=== PATIENT | male | born 1970 ===

== ENCOUNTER → 2021-07-05 14:20 | Outpatient (BNVA) | payer MEDICAID, SELFPAY | PROVIDERS: Visit Provider Orthopaedic Surgery | DX: R20.0 Anesthesia of skin (principal); R20.2 Paresthesia of skin; M25.641 Stiffness of right hand, not elsewhere classified | CPT/HCPCS: 97140; 99202 ==

== ENCOUNTER 2023-01-28 12:16 | Day surgery (SDC) | payer MEDICAID, SELFPAY ==
[2023-01-28 12:40] LABS: Glucose, Whole Blood 125 mg/dL (60-115)
--- NOTE | 2023-01-28 12:43 | HO.ANESPROP2 ---
HPI - Anesthesia Eval Consult details Narrative: for colonoscopy [facility] Active Problems Active Problems: All Active Problems (Updated 01/25/23 @ 13:42 by Khushboo Gutierrez, RN) Numbness and tingling in both hands (Acute) Stiffness of right hand joint (Acute) Past Medical History Medical History (Updated 01/25/23 @ 13:42 by Khushboo Gutierrez RN) BPH (benign prostatic hyperplasia) Diabetes High blood pressure Hyperglycemia Family History Family history of problems with anesthesia: No Surgical History History of Problems with Anesthesia: No Social History Social History Patient Tobacco Use Status: Never used Tobacco Meds Allergies Allergy/AdvReac Type Severity Reaction Status Date / Time No Known Allergies Allergy Verified 07/05/21 15:29 [No Known Allergies*] Active Medications: Current Medications Sodium Biphosphate/Sodium Phosphate (Sodium Phosphate,Reynolds-Dibasic 133 Ml Enema) 133 ml CO ONCE PRN PRN Reason: Poor Colonoscopy Prep Results Home Medications Medication Instructions Recorded Confirmed Last Taken Type aspirin 81 mg tablet,delayed 81 mg PO DAILY 07/05/21 Unknown History release atorvastatin 10 mg tablet 10 mg PO BEDTIME 07/05/21 Unknown History cyanocobalamin (vitamin B-12) 1,000 mcg PO DAILY 07/05/21 Unknown History 1,000 mcg capsule dulaglutide 0.75 mg/0.5 mL 0.75 mg subcut QWEEK 07/05/21 Unknown History subcutaneous pen injector ([employer]) hydrochlorothiazide 12.5 mg capsule 12.5 mg PO DAILY 07/05/21 Unknown History lisinopril 2.5 mg tablet 2.5 mg PO DAILY 07/05/21 Unknown History metformin 500 mg tablet 500 mg PO DAILY 07/05/21 Unknown History amlodipine 10 mg tablet 10 mg PO DAILY 01/25/23 01/25/23 Unknown History cetirizine 10 mg tablet 10 mg PO DAILY PRN allergies 01/25/23 01/25/23 Unknown History cholecalciferol (vitamin D3) 50 50 mcg PO QAM 01/25/23 01/25/23 Unknown History mcg (2,000 unit) capsule oxybutynin chloride 10 mg 10 mg PO DAILY 01/25/23 01/25/23 Unknown History tablet,extended release 24 hr tamsulosin 0.4 mg capsule 0.4 mg PO BEDTIME 01/25/23 01/25/23 Unknown History Exam Exam Date and Time: January 28, 2023 1243 Pertinent Lab Results Pertinent Lab Results: Laboratory Tests 01/28/23 12:37 POC Glucose 125 H Airway Mallampati Class: I TM Dist: >3cm Neck ROM: Full Heart: ok Lungs: ok Assessment and Plan Assessment Anesthesia Assessment: Anesthesia Plan Discussed and Chart Reviewed Final Anesthetic Review Family History of Problems with Anesthesia: No History of Problems with Anesthesia: No NPO: Yes ASA Class: II Final Preanesthetic Review: No Changes in Pt Med Stat, Meds/Allgs Chart Reviewed, Consent Obtained/Reviewed and Anes Risks/Benef Reviewed Patient Risk: Intermediate Procedure Risk: Low Anesthetic Plan Anesthetic Plan: MAC: and Agree w/ Assess. and Plan Disposition: Standard PACU
[2023-01-28 12:47] VITALS: BP 162/72; PULSE 75; RESP 16; TEMP 36.7; O2SAT 100; BMI 24.3
[2023-01-28 14:34] VITALS: BP 95/54; PULSE 63; RESP 16; TEMP 36.2; O2SAT 98
--- NOTE | 2023-01-28 14:38 | P.BOP_ITS ---
Brief Operative Note Date of Service: 01/28/23 Pre-op diagnosis: Heme + stool Post-op diagnosis: other (Colon polyps) Procedure: Colonoscopy to the cecum and TI with hot snare polypectomy x 1 at 20cm with placement of submucosal ink and 1 Resolution clip, and biopsy and removal of polyps x 3. Surgeon: Javed Galarza Anesthesia: MAC Was an Alpine Patroller used for this Procedure?: No Estimated blood loss (mL): 2.0 Pathology: other (A. Cecal polyp B. Transverse colon polyp C. Polyp at 25cm D. Polyp at 20cm) Condition: stable Disposition: PACU
[2023-01-28 14:49] VITALS: BP 106/58; PULSE 60; RESP 16; TEMP 37; O2SAT 99
--- NOTE | 2023-01-29 00:26 | OP_ITS ---
DATE OF SERVICE: 01/28/2023 SURGEON: Javed Galarza MD INDICATIONS: The patient presents for evaluation of heme-positive stool. Full consent has been obtained from him for this, including risks of bleeding and perforation. PREOPERATIVE DIAGNOSIS: Heme-positive stool. POSTOPERATIVE DIAGNOSIS: PROCEDURE PERFORMED: ESTIMATED BLOOD LOSS: COMPLICATIONS: ANESTHESIA: Medications used, monitored anesthesia care. ASSISTANTS: SPECIMENS: POSTOPERATIVE DIAGNOSES: Heme-positive stool, colon polyps, diverticulosis, and internal hemorrhoids. PROCEDURES PERFORMED: Colonoscopy to the cecum and terminal ileum with biopsy and removal of polyps, hot snare polypectomy x1, placement of 1 Resolution clip on the polypectomy site at 20 cm, and placement of submucosal ink devlin at the polypectomy site at 20 cm. DESCRIPTION OF PROCEDURE: The patient was placed in the left lateral decubitus position. The digital rectal exam revealed no abnormalities. The [employer] video pediatric colonoscope was entered into the rectum and advanced easily to the cecum. Once in the cecum, I did identify cecal pouch with appendiceal orifice and a normal-appearing ileocecal valve. The terminal ileum was cannulated and appeared normal. The scope was withdrawn back in the colon. The entire cecum and ileocecal valve appeared normal other than a 3 mm polyp, which was biopsied and completely removed with a cold biopsy forceps. The scope was then slowly withdrawn assessing all mucosal surfaces carefully. Preparation was excellent. In the transverse colon was a flat approximately 3 to 4 mm polyp, which was biopsied and completely removed with a cold biopsy forceps. At 25 cm was an approximately 4 mm polyp, which was biopsied and completely removed with a cold biopsy forceps. At 20 cm was an approximately 1.5 cm to 2.0 cm polyp on a stalk. The head of the polyps did have some friability and some small ulcerations. The entire polyp was removed at the base of the stalk with the hot snare and then recovered with the retrieval net and brought out of the patient. The scope was advanced back to the polypectomy site which appeared clean, without any sign of residual polyp nor bleeding. I placed a submucosal ink tommy on each side of the polypectomy site and then placed a single Resolution clip onto the polypectomy site with good deployment and good hemostasis. I did not visualize any other polyps, colitis, nor angiodysplasia. There was mild amount of sigmoid diverticulosis. In the rectum, the scope was retroflexed visualizing small internal hemorrhoids, but no other pathology. The rectal mucosa appeared normal. The scope was straightened out and withdrawn from the patient. He tolerated the procedure well and was returned to the recovery area in stable condition. IMPRESSION: 1. Colon polyps. 2. Diverticulosis. 3. Internal hemorrhoids. PLAN: The results of the pathology will be checked. Depending upon the pathology findings on the larger polyp at 20 cm we will then determine as to when his next colonoscopy will be. If they are all just tubular adenomas, including the larger polyp, I would then recommend a repeat colonoscopy in 3 years. He was advised not to use any aspirin or NSAIDs for at least 1 week. This has been discussed with his with an coil spring assembler. MD AZALIA Page/DANIEL / [id number] MTDD
== END 2023-01-28 15:06 | disposition home or self-care (01) ==
PROVIDERS: Visit Provider Internal Medicine
PROC: 0DJD8ZZ Inspection of Lower Intestinal Tract, Via Natural or Artificial Opening Endoscopic (ICD-10-PCS; CPT 45378; principal; 2023-01-28 13:40)
DX: R19.5 Other fecal abnormalities (principal); D12.0 Benign neoplasm of cecum; D12.3 Benign neoplasm of transverse colon; D12.6 Benign neoplasm of colon, unspecified; K57.30 Diverticulosis of large intestine without perforation or abscess without bleeding; K64.8 Other hemorrhoids; E11.9 Type 2 diabetes mellitus without complications; I10 Essential (primary) hypertension; Z79.84 Long term (current) use of oral hypoglycemic drugs; Z79.899 Other long term (current) drug therapy
CPT/HCPCS: 45385; 45381; 45380; 82947; 88305

== ENCOUNTER 2023-06-28 15:00 | Outpatient (REF) | payer MEDICAID, SELFPAY ==
[2023-06-28 17:43] LABS: Alanine Aminotransferase 33 U/L (0-40); Albumin Level 4.3 g/dL (3.5-5.0); Alkaline Phosphatase 63 U/L (39-117); Anion Gap 16 (12-20); Aspartate Amino Transferase 19 U/L (5-37); Bilirubin Total 0.4 mg/dL (0.0-1.0); Blood Urea Nitrogen 14 mg/dL (9-16); Calcium 9.6 mg/dL (8.4-10.2); Carbon Dioxide 24 mmol/L (22-29); Chloride 105 mmol/L (96-108); Cholesterol 103 mg/dL (<200); Estimated Glomerular Filt Rate > 60; Glucose Random 141 mg/dL (60-115); HDL Cholesterol 30 mg/dL (>40); LDL Cholesterol Calculated 35 mg/dL (<100); Potassium 3.9 mmol/L (3.3-5.1); Sodium 141 mmol/L (135-145); Total Protein 7.3 g/dL (6.5-8.0); Triglycerides 191 mg/dL (<150)
[2023-06-28 18:04] LABS: Prostate Specific Antigen 0.54 ng/mL (<0.05-4.0)
[2023-06-29 03:33] LABS: HBS Num1 > 1000.00 mIU/mL (0-7.99); ~Hepatitis B Surface Antibody REACTIVE (Nonreactive)
== END 2023-06-28 15:01 | disposition home or self-care (01) ==
LOC: HO.HHCL 15:00
PROVIDERS: Visit Provider Registered Nurse
DX: Z00.01 Encounter for general adult medical examination with abnormal findings (principal); E11.9 Type 2 diabetes mellitus without complications
CPT/HCPCS: 36415; 80053; 80061; 84153; 86706

== ENCOUNTER 2023-10-21 14:15 | Emergency (ER) | payer MEDICAID, SELFPAY ==
--- NOTE | 2023-10-21 14:30 | ED_ITS ---
HPI - General Adult General Chief complaint: Wound/Laceration Stated complaint: Cut on lip Time Seen by Provider: 10/21/23 15:02 Source: patient and family Mode of arrival: ambulatory Limitations: no limitations History of Present Illness HPI narrative: Patient is a 53-year-old male with history of DM presenting to the emergency department with complaint of laceration to left lower lip. Patient states that he was walking up a set of stairs with a ladder when he lost his footing, falling forward and hitting his lower lip against the step. He denies loss of consciousness. Denies any loose teeth. Denies any injury to tonuge. Denies headache, vision changes. He has not anticoagulated. Believes last tetanus vaccine was 6 years ago. MD complaint: lip laceration Onset (ago): hour(s) Location: mouth Severity: mild Quality: aching Associated symptoms: denies other symptoms Treatments prior to arrival: cold therapy Related Data Home Medications Medication Instructions Recorded Confirmed aspirin 81 mg tablet,delayed 81 mg PO DAILY 07/05/21 release atorvastatin 10 mg tablet 10 mg PO BEDTIME 07/05/21 cyanocobalamin (vitamin B-12) 1,000 mcg PO DAILY 07/05/21 1,000 mcg capsule dulaglutide 0.75 mg/0.5 mL 0.75 mg subcut QWEEK 07/05/21 [facility] hydrochlorothiazide 12.5 mg capsule 12.5 mg PO DAILY 07/05/21 lisinopril 2.5 mg tablet 2.5 mg PO DAILY 07/05/21 metformin 500 mg tablet 500 mg PO DAILY 07/05/21 amlodipine 10 mg tablet 10 mg PO DAILY 01/25/23 01/25/23 cetirizine 10 mg tablet 10 mg PO DAILY PRN allergies 01/25/23 01/25/23 cholecalciferol (vitamin D3) 50 50 mcg PO QAM 01/25/23 01/25/23 mcg (2,000 unit) capsule oxybutynin chloride 10 mg 10 mg PO DAILY 01/25/23 01/25/23 tablet,extended release 24 hr tamsulosin 0.4 mg capsule 0.4 mg PO BEDTIME 01/25/23 01/25/23 Previous Rx's Medication Instructions Recorded amoxicillin 875 mg-potassium 1 tab PO BID #10 tabs 10/21/23 clavulanate 125 mg tablet ibuprofen 600 mg tablet 600 mg PO TID PRN pain #20 tabs 10/21/23 Allergies Allergy/AdvReac Type Severity Reaction Status Date / Time No Known Allergies Allergy Verified 10/21/23 14:31 [No Known Allergies*] Review of Systems 2 Review of Systems: As per HPI. Yes all other systems are reviewed and are negative Constitutional: Constitutional: Reports as per HPI [facility] Past Medical History Medical History (Updated 10/21/23 @ 15:52 by Trini Osei NP) BPH (benign prostatic hyperplasia) High blood pressure Hyperglycemia Diabetes Social History Social History Patient Tobacco Use Status: Never used Tobacco Advance Directives: No Advance Directives Information Provided: Yes Physical Exam ED Vital Signs: Vital Signs - 24 hr 10/21/23 14:31 Temperature 98 F Pulse Rate 73 Respiratory Rate 17 Blood Pressure 178/87 H Pulse Oximetry 98 Oxygen Delivery Method Room Air BMI result Body Mass Index 25.4 Vital signs have been reviewed and appear to be correct. Blood pressure eleavted. Heart rate normal. Respiratory rate normal. Temperature normal. Oxygen saturation normal. Const General: cooperative, healthy appearing and no acute distress Orientation/consciousness: oriented to person, oriented to place, oriented to time and patient oriented x3 Limitations: no limitations HENMT Head: Yes normocephalic and Yes atraumatic Ears: external ears normal General nose exam: Normal external nose present Face and sinus: Yes face symmetric Mouth: oropharynx normal, moist mucous membranes and lip abnormal left lower laceration Mouth/tongue images: 2 1. Laceration with irregular borders, does not cross vermilion border, no active bleeding, moderate swelling Throat: Yes uvula midline Eyes Pupils: Equal, round and reactive pupils present Neck Neck: Yes normal visual inspection and Yes supple Resp Effort & Inspection: normal respiratory effort and able to speak in complete sentences Auscultation: clear to auscultation bilaterally Cardio Rate: regular rate Rhythm: regular rhythm Heart sounds: S1 normal heart sound present and S2 normal heart sound present Skin General skin exam: elasticity normal and turgor normal Neuro General: oriented to person, oriented to place, oriented to time, patient oriented x3, moves all extremities, no focal motor deficits and CN's II-XI intact bilaterally Cranial nerves: Yes Equal, round and reactive pupils present Cognition (Neuro): normal cognition Extrem General: Yes full ROM, Yes no pedal edema and Yes no calf tenderness Psych Mental Status: mental status grossly normal Affect: normal affect Thought process: Normal thought process present Course Course Course Narrative: RME performed by Mitzy Richter PA-C. Patient is a 53 year old assigned male at presenting to the emergency department with a lip laceration. Detailed physical exam and review of systems are deferred to the bull wheel worker. Patient placed back in the waiting room pending room availability. Medications Administered Discontinued Medications Generic Name Dose Route Start Last Admin Trade Name Aurea PRN Reason Stop Dose Admin Diphtheria/Tetanus/Acell Pertussis 0.5 ml 10/21/23 15:03 10/21/23 15:32 Diphth,Pertus(Acell),Tet Adult 0.5 Ml Syringe IM 10/21/23 15:04 0.5 ml .ONCE ONE Administration Lidocaine HCl 5 ml 10/21/23 15:03 10/21/23 15:34 Lidocaine Hcl 1 % Mpf 5 Ml Vial INFILTRATI 10/21/23 15:04 5 ml ONCE ONE Administration Procedures Laceration Laceration 1: Site: lip Side (If applicable): left Size (cm): 1 Description: irregular Depth: simple, single layer Local Anesthetic: lidocaine 1% and other anesthetic (topical bupivacaine) Amount of anesthesia used (mL): 1 Pre-repair: wound explored, irrigated extensively and deep structures intact Skin layer closed with: other (chromic gut) Size (cm): 6-0 Number of sutures: 3 Technique: simple, interrupted Medical Decision Making Medical Decision Making MDM Narrative: Patient is a 53-year-old male with history of DM presenting to the emergency department with complaint of laceration to left lower lip. On exam patient is awake, A+Ox3, BP elevated, likely secondary to pain, VS otherwise WNL, afebrile, normal neurological exam without focal deficits, physical exam findings as above. Given reported symptoms and physical exam findings, initial differential includes lip laceration, dental injury. Laceration repaired as per procedure note. Tdap updated. Wound care discussed with patient and return precautions discussed at bedside. Will prescribe Augmentin as patient is diabetic to prevent infection. Will prescribe 600 mg ibuprofen at patient request. Instructed patient to follow-up with primary care provider. Patient verbalized understanding of and agreement with plan Differential Diagnosis Differential Diagnoses: The differential diagnosis associated with the presentation includes As per MDM. External Record Review External record reviewed: Inpatient record, Office record and Outpatient record Prescription Management I considered prescription management with: Pain Medication and Antibiotic Discharge Plan Discharge Clinical Impression: Laceration of lip without complication Qualifiers: Encounter type: initial encounter Qualified Code(s): S01.511A - Laceration without foreign body of lip, initial encounter Patient Disposition: Home, Self-Care Instructions: Facial Laceration (ED) Additional Instructions: You have been evaluated in the emergency department today for a laceration to your lower lip. Your laceration was repaired in the emergency department with sutures which do not need to be removed, they will dissolve on their own. You are being prescribed antibiotics to prevent infection. Please keep the area surrounding the laceration clean and dry and use caution when eating, drinking, and brushing your teeth. Keep the area out of direct sunlight for the next 6 months to help prevent scarring. Assess the wound daily for signs of infection. If you develop fever, redness, swelling at the site of your laceration, or thick yellow drainage please come back to the ER for a wound check. Prescriptions: New amoxicillin-pot clavulanate 875-125 mg tablet 1 tab PO BID Qty: 10 0RF ibuprofen 600 mg tablet 600 mg PO TID PRN (Reason: pain) Qty: 20 0RF No Action cetirizine 10 mg Tablet 10 mg PO DAILY PRN (Reason: allergies) oxybutynin chloride 10 mg Tablet Extended Release 24hr 10 mg PO DAILY tamsulosin 0.4 mg Capsule 0.4 mg PO BEDTIME amlodipine 10 mg Tablet 10 mg PO DAILY cholecalciferol (vitamin D3) 50 mcg (2,000 unit) capsule 50 mcg PO [facility]
[2023-10-21 14:31] VITALS: BP 178/87; PULSE 73; RESP 17; TEMP 36.6; O2SAT 98; BMI 25.4
--- NOTE | 2023-10-21 15:16 | ED.WOUNDLAC ---
HPI - Wound/Laceration General Chief Complaint: Wound/Laceration Stated Complaint: Cut on lip Time Seen by Provider: 10/21/23 15:02 Source: patient and family Mode of arrival: ambulatory Limitations: no limitations History of Present Illness HPI narrative: Patient is a 53-year-old male presenting to the emergency department with complaint of laceration to left lower lip. Patient states that he was walking up a set of stairs with a ladder when he lost his footing, falling forward and hitting his lower lip against the step. He denies loss of consciousness. Denies any loose teeth. Denies any injury to tonuge. Denies headache, vision changes. He has not anticoagulated. Believes last tetanus vaccine was 6 years ago. Onset (ago): minute(s) Location: face Place: home Patient tetanus UTD: No Context: accidental Associated symptoms: pain Treatments prior to arrival: cold therapy Related Data Home Medications Medication Instructions Recorded Confirmed aspirin 81 mg tablet,delayed 81 mg PO DAILY 07/05/21 release atorvastatin 10 mg tablet 10 mg PO BEDTIME 07/05/21 cyanocobalamin (vitamin B-12) 1,000 mcg PO DAILY 07/05/21 1,000 mcg capsule dulaglutide 0.75 mg/0.5 mL 0.75 mg subcut QWEEK 07/05/21 [facility] hydrochlorothiazide 12.5 mg capsule 12.5 mg PO DAILY 07/05/21 lisinopril 2.5 mg tablet 2.5 mg PO DAILY 07/05/21 metformin 500 mg tablet 500 mg PO DAILY 07/05/21 amlodipine 10 mg tablet 10 mg PO DAILY 01/25/23 01/25/23 cetirizine 10 mg tablet 10 mg PO DAILY PRN allergies 01/25/23 01/25/23 cholecalciferol (vitamin D3) 50 50 mcg PO QAM 01/25/23 01/25/23 mcg (2,000 unit) capsule oxybutynin chloride 10 mg 10 mg PO DAILY 01/25/23 01/25/23 tablet,extended release 24 hr tamsulosin 0.4 mg capsule 0.4 mg PO BEDTIME 01/25/23 01/25/23 Allergies Allergy/AdvReac Type Severity Reaction Status Date / Time No Known Allergies Allergy Verified 10/21/23 14:31 [No Known Allergies*] Review of Systems Review of Systems: As per HPI. Yes all other systems are reviewed and are negative Constitutional: Constitutional: Reports as per HPI [facility] Past Medical History Medical History (Updated 01/25/23 @ 13:42 by Khushboo Gutierrez RN) BPH (benign prostatic hyperplasia) High blood pressure Hyperglycemia Diabetes Social History Social History Patient Tobacco Use Status: Never used Tobacco Advance Directives: No Advance Directives Information Provided: Yes Physical Exam Vital Signs: Vital Signs: Last Vital Signs Temp 98 F 10/21/23 14:31 Pulse 73 10/21/23 14:31 Resp 17 10/21/23 14:31 BP 178/87 H 10/21/23 14:31 Pulse Ox 98 10/21/23 14:31 O2 Del Method Room Air 10/21/23 14:31 BMI result Body Mass Index 25.4 Vital signs have been reviewed and appear to be correct. Blood pressure elevated. Heart rate normal. Respiratory rate normal. Temperature normal. Oxygen saturation normal. Const: General: cooperative, healthy appearing and no acute distress Orientation/consciousness: oriented to person, oriented to place, oriented to time and patient oriented x3 Limitations: no limitations HEENT: Head: Yes normocephalic and Yes atraumatic Ears: external ears normal General nose exam: Normal external nose present Face and sinus: Yes face symmetric Mouth: oropharynx normal, moist mucous membranes and lip abnormal left lower swelling and laceration Mouth/tongue images: 1. laceration with irregular borders, swelling, no active bleeding, does not cross codey border Throat: Yes uvula midline Eyes: Pupils: Equal, round and reactive pupils present Neck: Neck: Yes normal visual inspection and Yes supple Resp: Effort & Inspection: normal respiratory effort and able to speak in complete sentences Auscultation: clear to auscultation bilaterally Cardio: Rate: regular rate Rhythm: regular rhythm Heart sounds: S1 normal heart sound present and S2 normal heart sound present Skin: General skin exam: elasticity normal and turgor normal Neuro: General: oriented to person, oriented to place, oriented to time, patient oriented x3, moves all extremities, no focal motor deficits and CN's II-XI intact bilaterally Cranial nerves: Yes Equal, round and reactive pupils present Cognition (Neuro): normal cognition Extrem: General: Yes full ROM, Yes no pedal edema and Yes no calf tenderness Psych: Mental Status: mental status grossly normal Affect: normal affect Thought process: Normal thought process present Medical Decision Making Medical Decision Making [facility] Narrative: Patient is a 53-year-old male presenting to the emergency department with complaint of laceration to left lower lip. On exam patient is awake, A+Ox3, BP elevated, VS otherwise WNL, afebrile, normal neurological exam without focal deficits, physical exam findings as above. Given reported symptoms and physical exam findings, initial differential includes lower lip laceration, dental injury. Laceration repaired as per procedure note. Tdap updated. Patient tolerated well. Wound care instructions discussed with patient at bedside. Return precautions discussed. Patient verbalized understanding of and agreement with plan. Differential Diagnosis Differential Diagnoses: The differential diagnosis associated with the presentation includes as per [facility] External Record Review External record reviewed: Inpatient record, Office record and Outpatient record Discharge Plan Discharge Prescriptions: No Action cetirizine 10 mg Tablet 10 mg PO DAILY PRN (Reason: allergies) oxybutynin chloride 10 mg Tablet Extended Release 24hr 10 mg PO DAILY tamsulosin 0.4 mg Capsule 0.4 mg PO BEDTIME amlodipine 10 mg Tablet 10 mg PO DAILY cholecalciferol (vitamin D3) 50 mcg (2,000 unit) capsule 50 mcg PO QAM
[2023-10-21] MEDS: Diphth,Pertus(ACell),Tet Adult 0.5 ML SYRINGE IM (15:32)
[2023-10-21] MEDS: Lidocaine HCl 1 % MPF 5 ML VIAL INFILTRATI (15:34)
== END 2023-10-21 15:59 | disposition home or self-care (01) ==
PROVIDERS: Emergency Provider Emergency Medicine
DX: S01.511A Laceration without foreign body of lip, initial encounter (principal); W17.89XA Other fall from one level to another, initial encounter; Y93.89 Activity, other specified; Y92.9 Unspecified place or not applicable; Y99.9 Unspecified external cause status; Z23 Encounter for immunization
CPT/HCPCS: 12011; 90471; 90715; 99282; 99284

== ENCOUNTER 2023-11-15 10:30 | Outpatient (REF) | payer MEDICAID, SELFPAY ==
[2023-11-15 11:21] LABS: Estimated Average Glucose 140 mg/dL; Hemoglobin A1c % 6.5 % (<6.0)
[2023-11-15 11:55] LABS: Alanine Aminotransferase 27 U/L (0-40); Albumin Level 4.4 g/dL (3.5-5.0); Alkaline Phosphatase 69 U/L (39-117); Anion Gap 10 (12-20); Aspartate Amino Transferase 17 U/L (5-37); Bilirubin Total 0.5 mg/dL (0.0-1.0); Blood Urea Nitrogen 15 mg/dL (9-16); Calcium 9.4 mg/dL (8.4-10.2); Carbon Dioxide 29 mmol/L (22-29); Chloride 107 mmol/L (96-108); Cholesterol 119 mg/dL (<200); Estimated Glomerular Filt Rate > 60; Glucose Random 140 mg/dL (60-115); HDL Cholesterol 31 mg/dL (>40); LDL Cholesterol Calculated 70 mg/dL (<100); Potassium 4.7 mmol/L (3.3-5.1); Sodium 141 mmol/L (135-145); Total Protein 7.5 g/dL (6.5-8.0); Triglycerides 93 mg/dL (<150)
[2023-11-15 12:29] LABS: Creatinine Urine 143.38 mg/dL; Microalbum/Creatinine Ratio Ur 7.6 ug/mg cr (<30)
[2023-11-24 10:03] LABS: Anti Nuclear Antibody Pattern Nuclear, Homogeneous; Anti Nuclear Antibody Screen POSITIVE (NEGATIVE)
== END 2023-11-15 10:31 | disposition home or self-care (01) ==
LOC: HO.HHCL 10:30
PROVIDERS: Nurse Practitioner; Visit Provider Student in an Organized Health Care Education/Training Program
DX: I10 Essential (primary) hypertension (principal); E11.9 Type 2 diabetes mellitus without complications; R22.0 Localized swelling, mass and lump, head
CPT/HCPCS: 36415; 80053; 80061; 82043; 82570; 83036; 86038; 86039

== ENCOUNTER 2024-08-04 14:53 | Outpatient (AMB) | payer MEDICAID, SELFPAY ==
--- NOTE | 2024-08-04 15:04 | MHC.OFFVIS ---
Vital Signs 08/04/24 15:13 Height 5 ft 7 in Weight 168 lb 13.985 oz BMI 26.4 BP 140/62 H Blood Pressure Location Lt brachial Position Sitting Pulse 81 Pulse Source Pulse Oximeter Pulse Oximetry (%) 96 Oxygen Delivery Method Room Air Intake Visit Reasons: +SANJANA/cm Elevator Starter Required: Yes Elevator Starter Language: Seamer Operator Services: Elevator Starter Present Elevator Starter Name: Edenilson [email or web address] Information Interpreted: non-clinical & clinical Allergies No Known Allergies [No Known Allergies*] Allergy (Verified 08/04/24 15:08) Medication List - Last Reconciled 08/04/24 by Leopoldo Arnold MD amlodipine 10 mg PO DAILY amoxicillin-pot clavulanate 875-125 mg 1 tab PO BID aspirin 81 mg PO DAILY atorvastatin 10 mg PO BEDTIME cetirizine 10 mg PO DAILY PRN cholecalciferol (vitamin D3) 50 mcg PO QAM cyanocobalamin (vitamin B-12) 1,000 mcg PO DAILY dulaglutide (Trulicity) 0.75 mg subcut QWEEK hydrochlorothiazide 12.5 mg PO DAILY ibuprofen 600 mg PO TID PRN lisinopril 2.5 mg PO DAILY metformin 500 mg PO DAILY oxybutynin chloride ER 10 mg PO DAILY tamsulosin 0.4 mg PO BEDTIME HPI Comments Details: This is a 54-year-old male who presents for evaluation of positive SANJANA in the context of lip swelling. For new this year patient presented to the hospital after he fell and had a lip injury, he had 3 stitches and was prescribed Augmentin. He then developed lip swelling, he was evaluated by his PCP who ordered an SANJANA test which was positive. Patient states that he had similar symptoms 2-3 years ago with lip swelling. Denies any other symptoms today such as fevers, skin rashes, unintentional weight loss. He is unaware of any family history of an autoimmune rheumatic disease. [facility] Medical History Lip swelling Positive SANJANA (antinuclear antibody) Contact dermatitis Hypertrophy of bone BPH (benign prostatic hyperplasia) High blood pressure Hyperglycemia Diabetes Family History Father Arthritis Mother Diabetes Arthritis Sister Diabetes Social History Household Members: Spouse Housing: House Alcohol intake: former Patient Tobacco Use Status: Never used Tobacco Review of Systems Const Denies fever(s) and Denies weight loss ENT Reports no additional complaints Musc Reports arthralgias Physical Exam Vital Signs: Last Vital Signs Pulse 81 08/04/24 15:13 BP 140/62 H 08/04/24 15:13 Pulse Ox 96 08/04/24 15:13 Oxygen Delivery Method Room Air 08/04/24 15:13 BMI result Body Mass Index 26.4 Const General: cooperative, healthy appearing and comfortable Nutritional Appearance: overweight Orientation/consciousness: patient oriented x3 Limitations: no limitations HEENT Head: Yes normocephalic and Yes atraumatic Mouth: moist mucous membranes Resp Effort & Inspection: normal respiratory effort and able to speak in complete sentences Auscultation: clear to auscultation bilaterally Skin General skin exam: no rashes or lesions noted Neuro General: patient oriented x3 Extrem Other: Osteoarthritic changes of both hands with no active synovitis Left hand Dupuytren's contracture Assessment & Plan Assessment & Plan (1) Positive SANJANA (antinuclear antibody): Code(s): R76.8 - Other specified abnormal immunological findings in serum Category: Medical Plan: This is a 54-year-old male who presents for evaluation of positive SANJANA. This was ordered in the context of lip swelling. Angioedema was suspected. Upon evaluation I do not see any signs suggestive of an autoimmune rheumatic disease. About 20% of the population may have a positive SANJANA with no underlying autoimmune rheumatic disease. I think patient should be evaluated by Allergy/immunology. Consider discontinuing lisinopril Plan I spent 30 minutes reviewing patient's chart, evaluating patient, counseling patient and documenting in the chart Coding Level of Care Code New Pt Level 3 (80942) Diagnoses Positive SANJANA (antinuclear antibody) R76.8
[2024-08-04 15:13] VITALS: BP 140/62; PULSE 81; O2SAT 96; BMI 26.4
== END 2024-08-04 15:42 | disposition home or self-care (01) ==
LOC: HO.RHE 14:54
PROVIDERS: PCP Student in an Organized Health Care Education/Training Program; Visit Provider Student in an Organized Health Care Education/Training Program
DX: R76.8 Other specified abnormal immunological findings in serum (principal)
CPT/HCPCS: 99203

== ENCOUNTER → 2024-08-04 14:53 | Outpatient (BNVA) | payer MEDICAID, SELFPAY | PROVIDERS: PCP Student in an Organized Health Care Education/Training Program; Visit Provider Student in an Organized Health Care Education/Training Program | DX: R76.8 Other specified abnormal immunological findings in serum (principal); Z91.81 History of falling | CPT/HCPCS: 99202 ==

== ENCOUNTER 2024-09-04 10:04 | Outpatient (REF) | payer MEDICAID, SELFPAY ==
[2024-09-04 12:01] LABS: Anion Gap 11 (12-20); Blood Urea Nitrogen 18 mg/dL (9-16); Calcium 10.2 mg/dL (8.4-10.2); Carbon Dioxide 25 mmol/L (22-29); Chloride 106 mmol/L (96-108); Estimated Glomerular Filt Rate > 60; Glucose Random 197 mg/dL (60-115); Potassium 4.2 mmol/L (3.3-5.1); Sodium 138 mmol/L (135-145)
== END 2024-09-04 10:05 | disposition home or self-care (01) ==
LOC: HO.HHCL 10:04
PROVIDERS: Visit Provider Nurse Practitioner
DX: E11.9 Type 2 diabetes mellitus without complications (principal); I10 Essential (primary) hypertension
CPT/HCPCS: 36415; 80048

== ENCOUNTER 2024-11-13 08:19 | Outpatient (REF) | payer MEDICAID, SELFPAY ==
--- OUTSIDE RECORDS SUMMARY | 2024-11-13 08:27 | XMS_ITS | Encounter Summary ---
Author Organization [employer] Address [address] [facility] 7t [place] [address] Care Team Providers Care Electrician Station Assistant Name Role Phone Maximelois Kira DARRION Primary Care Provider [phone] Reason for Visit * Reason Comments Med Refill Encounter Details Date Type Department Care Team ([facility] st Contact Info) Description 10/07/2023 Refill [facility] [address] [place], [place] [phone] Julius Buckley MD [address] [place] [address] Type 2 diabetes mellitus without complication, without long-term current use of insulin ([facility]) Social History Tobacco Use Types Packs/Day Years Used Date Smoking Tobacco: Never Passive Smoke Exposure: Never Smokeless Tobacco: Never Alcohol Use Standard Drinks/Week Comments Not Currently 0 (1 standard drink = 0.6 oz pur e alcohol) Housing Stability Answer Date Recorded What is your housing situation today? I have liya sarah 07/16/[address] you li ve. Do you have problems with any of the following? None of the above 07/16/2023 Food Insecurity Answer Date Recorded Within the past 12 months, y ou worried that your food would run out before you got money to buy more: Never True 07/16/2023 Within the past 12 months,th e food you bought just didn't last and you didn't have enough money to get more: Never True Transportation Answer Date Recorded In the past 12 months, has l ack of transportation kept you from medical appts, meetings, work or from getting things needed for daily living? No 07/16/2023 Utilities Answer Date Recorded In the past 12 months, has t he electric, gas, oil or water company threatened to shut off services in your home? No 07/16/2023 Depression Answer Date Recorded Patient Health Questionnaire-2 Score 0 09/25/2022 Sex and Gender Information Value Date Recorded Sex Assigned at Male 07/30/2022 10:18 AM EDT Legal Sex Male 10:18 AM EDT Gender Identity Male 07/30/2022 10:18 AM EDT Sexual Orientation Choose not to disclose 2021 10:18 AM EDT documented as of this encounter Miscellaneous Notes * Telephone Encounter - Kira Larry NP - 10/08/2023 11:19 AM EST Approving, but needs appt for additional refills. documented in this encounter Plan of Treatment Upcoming Encounters Date Type Department Care Team (Late st Contact Info) Description 12/02/2024 3:15 PM EST Office Visit [facility] [address] [place] [address] Kira Larry NP [address] [place] [address] documented as of this encounter Visit Diagnoses Diagnosis Type 2 diabetes mellitus without complication, without long-term current use of insulin ([facility]) documented in this encounter Care Teams Electrician Station Assistant Relationship Specialty Start Date End Date Kira Larry NP [address] [place] [address] PCP - General Family Medicine 07/04/23 documented as of this encounter
--- OUTSIDE RECORDS SUMMARY | 2024-11-13 08:27 | XMS_ITS | Encounter Summary ---
Author Organization [employer] [facility] Address [address] [facility] 7t [place] [address] Care Team Providers Care Coal Miner Name Role Phone Mely Olivas Primary Care Provider [phone] Kira Larry NP Primary Care Provider [phone] Encounter Details Date Type Department Care Team (Latest Contact Info) Description 03/31/2019 Abstract [facility] CONVERSIONS Dental, Provider, DDS Social History Tobacco Use Types Packs/Day Years Used Date Smoking Tobacco: Never Assessed Sex and Gender Information Value Date Recorded Sex Assigned at Male 07/30/2022 10:18 AM EDT Legal Sex Male 10:18 AM EDT Gender Identity Male 07/30/2022 10:18 AM EDT Sexual Orientation Choose not to disclose 2021 10:18 AM EDT documented as of this encounter Plan of Treatment Upcoming Encounters Date Type Department Care Team ( st Contact Info) Description 12/02/2024 3:15 PM EST Office Visit [facility] MEDICINE [address] [place] [address] Kira Larry NP [address] [place] [address] documented as of this encounter Visit Diagnoses Not on filedocumented in this encounter Care Teams Coal Miner Relationship Specialty Start Date End Date Mely Olivas FNP PCP - General Family Medicine 05/27/22 07/03/23 Kira Larry NP [address] [place] [address] PCP - General Family Medicine 07/04/23 documented as of this encounter
--- OUTSIDE RECORDS SUMMARY | 2024-11-13 08:27 | XMS_ITS | Encounter Summary ---
Author Organization [employer] Address [address] [facility] 7t [place] [address] Care Team Providers Care Bicycle Inspector Name Role Phone MaximeKira abreu DARRION Primary Care Provider [phone] Reason for Visit * Reason Comments Med Refill Encounter Details Date Type Department Care Team ([facility] st Contact Info) Description 10/07/2023 Refill [facility] [address] [place], [place] [phone] Name, MD [place] [address] [place] [address] Type 2 diabetes mellitus without complication, without long-term current use of insulin ([facility]) Social History Tobacco Use Types Packs/Day Years [...] Description 12/02/2024 3:15 PM EST Office Visit [facility] [address] [place] [address] Kira Larry NP [address] [place] [address] documented as of this encounter Visit Diagnoses Diagnosis Type 2 diabetes mellitus without complication, without long-term current use of insulin ([facility]) documented in this encounter Care Teams Bicycle Inspector Relationship Specialty Start Date End Date Kira Larry NP [address] [place] [address] PCP - General Family Medicine 07/04/23 documented as of this encounter
--- OUTSIDE RECORDS SUMMARY | 2024-11-13 08:27 | XMS_ITS | Encounter Summary ---
Author Organization [employer] Address [address] [facility] 7t [place] [address] Care Team Providers Care Epic Kaleidoscope Analyst Name Role Phone MaximeKira abreu DARRION Primary Care Provider [phone] Reason for Visit * Reason Comments Med Refill Encounter Details Date Type Department Care Team ([facility] st Contact Info) Description 08/06/2023 Refill [facility] [address] [place] [address] Mely Olivas FNP [address] [place] [address] Dept [place] [address] Type 2 diabetes mellitus without complication, without long-term current use of insulin ([facility]) Social History Tobacco Use Types [...] Description 12/02/2024 3:15 PM EST Office Visit [facility] MEDICINE [address] [place] [address] Kira Larry NP [address] [place] [address] documented as of this encounter Visit Diagnoses Diagnosis Type 2 diabetes mellitus without complication, without long-term current use of insulin ([facility]) documented in this encounter Care Teams Epic Kaleidoscope Analyst Relationship Specialty Start Date End Date Kira Larry NP [address] [place] [address] PCP - General Family Medicine 07/04/23 documented as of this encounter
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
--- OUTSIDE RECORDS SUMMARY | 2024-11-13 08:28 | XMS_ITS | Encounter Summary ---
Author Organization [employer] Address [address] [facility] 7t [place] [address] Care Team Providers Care Ceramic Restorer Name Role Phone Kira Larry NP Primary Care Provider [phone] Reason for Visit * Reason Comments Med Refill Encounter Details Date Type Department Care Team ([facility] st Contact Info) Description 10/27/2024 Refill [facility] [address] [place], [place] [phone] Kira Larry NP [address] [place], [place] [phone] Type 2 diabetes mellitus without complication, without long-term current use of insulin ([facility]) Social History Tobacco Use Types Packs/Day Years [...] Description 12/02/2024 3:15 PM EST Office Visit [facility] MEDICINE [address] [place] [address] Kira Larry NP [address] [place] [address] documented as of this encounter Visit Diagnoses Diagnosis Type 2 diabetes mellitus without complication, without long-term current use of insulin ([facility]) documented in this encounter Additional Health Concerns Assessment Noted Time PHQ-9 Depression Total Score: 4 03/11/20 24 4:00 PM EDT documented as of this encounter Care Teams Ceramic Restorer Relationship Specialty Start Date End Date Kira Larry NP [address] [place] [address] PCP - General Family Medicine 07/04/23 documented as of this encounter
--- OUTSIDE RECORDS SUMMARY | 2024-11-13 08:28 | XMS_ITS | Encounter Summary ---
Author Organization [employer] Address [address] [facility] 7t [place] [address] Care Team Providers Care Regulatory Coordinator Name Role Phone Maximelois Kira DARRION Primary Care Provider [phone] Reason for Visit * Reason Onset Date Comments Lab Orders 10/26/2024 Encounter Details Date Type Department Care Team ([facility] st Contact Info) Description 10/26/2024 Telephone [facility] MED[facility] [address] [place] [address] Baldo Love MA Lab Orders Social History Tobacco Use Types Packs/Day Years [...] encounter Miscellaneous Notes * Telephone Encounter - Baldo Love MA - 10/26/2024 3:38 PM EST T/C was made to notify patient that needs to do blood work before his next appointment with melinda Malone agree to come by Oct for labs. * Telephone Encounter - Baldo Love MA - 10/26/2024 3:38 PM EST ----- Message from Kira Larry sent at 10/11/2024 7:56 PM EST ----- Hi Timothy! When its closer to the patient's appointment date, please call and advise him to do fasting labs. They have been ordered documented in this encounter Plan of Treatment Upcoming Encounters Date Type Department Care Team (Late st Contact Info) Description 12/02/2024 3:15 PM EST Office Visit [facility] [address] [place] [address] Kria Larry NP [address] [place] [address] documented as of this encounter Visit Diagnoses Not on filedocumented in this encounter Additional Health Concerns Assessment Noted Time PHQ-9 Depression Total Score: 4 03/11/20 24 4:00 PM EDT documented as of this encounter Care Teams Regulatory Coordinator Relationship Specialty Start Date End Date Kira Larry NP [address] [place] [address] PCP - General Family Medicine 07/04/23 documented as of this encounter
--- OUTSIDE RECORDS SUMMARY | 2024-11-13 08:28 | XMS_ITS | Patient Health Record ---
Author Organization [facility] Address [address] [place] [address] Care Team Providers Care Supervisor Cemetery Workers Name Role Phone Mely Olivas N.P. Primary Care Provider Un available Javed Galarza Unavailable [phone] ALLERGIES No Known Allergies REASON FOR REFERRAL No Information MEDICATIONS Medication SIG (Take, Route, Frequency, Duration) Notes Start Date End Date Status Fish Oil 1000 MG TAKE 1 CAPSULE BY MO [facility] TWICE DAILY IN THE MORNING AND IN THE EVENING Diagnosis Unavailable Oral for 90 Active Tamsulosin HCl 0.4 MG TAKE 1 CAPSULE BY MOUTH EVERY EVENING (1/2 HOUR AFTER MEALS) Oral for 90 Active Dulcolax (colon prep) 5 MG take at 3:00 p.m and 7:00p.m. Orally two tablets twice a day for one day for 1 day 12/22/2022 Active oxyBUTYnin Chloride ER 10 MG TAKE 1 TABL ET BY MOUTH AT BEDTIME Diagnosis Unavailable Oral for 90 Active amLODIPine Besylate 10 MG TAKE 1 TABLET BY MOUTH EVERY MORNING Oral for 90 Active Atorvastatin Calcium 40 MG TAKE 1 TABLET BY MOUTH EVERY MORNING Diagnosis Unavailable Oral for 90 Active FreeStyle Lite Test - TEST BLOOD SUGAR T WICE DAILY In Vitro for 25 Active Vitamin D3 50 MCG (1999 UT) TAKE 1 CAPSU LE BY MOUTH EVERY MORNING Oral for 90 Active Trulicity 0.75 MG/0.5ML INJECT ONE PEN (=0.75MG) SUBCUTANEOUSLY ONCE A WEEK DIRECTED Subcutaneous for 28 Active Aspirin Low Dose 81 MG TAKE 1 TABLET BY MOUTH EVERY MORNING Oral for 90 Active MiraLax (colon prep) 17 GM/SCOOP 1 238 Gm bottle mixed with Gatorade or Crystal Light Orally begin at 5:00 p.m. the day before the procedure for 1 day 12/22/2022 Active hydroCHLOROthiazide 25 MG TAKE 1 TABLET BY MOUTH EVERY MORNING Oral for 90 Active D3 Super Strength 50 MCG (1999) TAKE 1 CAPSULE BY MOUTH EVERY MORNING Oral for 90 Active metFORMIN HCl 1000 MG TAKE 1 TABLET BY M OUTH TWICE DAILY IN THE MORNING AND IN THE EVENING WITH MEALS Oral for 90 Active Cetirizine HCl 10 MG TAKE 1 TABLET BY MO UTH ONCE DAILY NEEDED Oral for 90 Active Vitamin B-12 1000 MCG TAKE 1 TABLET BY M OUTH EVERY MORNING Oral for 90 Active TRUEplus Lancets 33G - TEST BLOOD SUGAR TWICE DAILY for 50 Active Lisinopril 40 MG TAKE 1 TABLET BY RENETTA TH EVERY MORNING DIRECTED Oral for 90 Active IMMUNIZATIONS Vaccine Route Administration Date Status Comme nts Influenza Unknown 07/17/2022 Administered SOCIAL HISTORY Tobacco Use: Social History Observation Description Date Details (start date - stop date) Never Smoker NA - NA Sex Assigned At : Social History Observation Description Sex Assigned At Unknown Tobacco Use/Smoking Question Answer Notes Patient is a nonsmoker Alcohol Screen Question Answer Notes Did you have a drink containing alcohol in the p ast year? No Points 0 Interpretation Negative PROBLEMS Problem Type ICD Code Onset Dates Problem Status W/U Status Risk SNOMED Code Notes Problem Heme + stool (R19.5) Active confirmed 55863648 Problem Diverticulosis of large intestine without perforation or abscess without bleeding (K57.30) Active confirmed Diverticul ar disease of colon (937969556) PLAN OF TREATMENT Future Test Test Name Order Date COLONOSCOPY 12/21/2022 Insurance Providers Payer Name Payer Address Payer Phone Subscriber Number Group Number Insured Name Patient Relationship to Insured Coverage Start Date Coverage End Date MEDICAID OF Probity [address] [place] [phone] [id number] LAWSON RANDOLPH Self - patient is the insured MEDICAL (GENERAL) HISTORY Medical History History ICD Code NIDDM HTN Denies VT,CVA,Lung disease,renal disease BPH Hyperlipidemia Surgical History Surgery Date(Month/Year)
--- OUTSIDE RECORDS SUMMARY | 2024-11-13 08:28 | XMS_ITS | Encounter Summary ---
Author Organization [employer] Address [address] [facility] 7t [place] [address] Care Team Providers Care Technical Support Manager Name Role Phone Mely Olivas MEGHA Primary Care Provider [phone] Kira Larry NP Primary Care Provider [phone] Encounter Details Date Type Department Care Team (Late st Contact Info) Description 06/04/2023 Orders Only [facility] [address] [place] [address] Millie Sanz LPN Social History Tobacco Use Types Packs/Day Years Used Date Smoking Tobacco: Never Passive Smoke Exposure: Never Smokeless Tobacco: Never Alcohol Use Standard Drinks/Week Comments Never 0 (1 standard drink = 0.6 oz pur e alcohol) Depression Answer Date Recorded Patient Health Questionnaire-2 [...] Description 12/02/2024 3:15 PM EST Office Visit [facility] MEDICINE [address] [place], [place] [phone] Kira Larry NP [address] [place], [place] [phone] documented as of this encounter Visit Diagnoses Not on filedocumented in this encounter Care Teams Technical Support Manager Relationship Specialty Start Date End Date Mely Olivas FNP PCP - General Family Medicine 05/27/22 07/03/23 Kira Larry NP [address] [place] [address] PCP - General Family Medicine 07/04/23 documented as of this encounter
--- OUTSIDE RECORDS SUMMARY | 2024-11-13 08:28 | XMS_ITS | Clinical Summary ---
Author Organization [address] [facility] Address [address] [place] [address] Phone Care Team Providers Care Paramedic Name Role Phone Shari Roger MD Primary Care Provider [phone] Social History Tobacco Use Types Packs/Day Years Used Date Smoking Tobacco: Never Assessed Sex and Gender Information Value Date Recorded Sex Assigned at Not on file Legal Sex Male 2:59 PM EST Gender Identity Not on file Sexual Orientation Not on file Plan of Treatment Upcoming Encounters Date Type Department Care Team ([facility] Contact Info) Description 01/13/2025 2:15 PM EDT Consult Orthopedic Surgery [place] [id number] [id number] Robert Hoyos, DPM [address] [address] Health Maintenance Due Date Last Done Comments DTaP,Tdap,and Td Vaccines (1 - Tdap) 1987 Hepatitis B Vaccines (1 of 3 - 19+ 3-dose series) 1987 Pneumococcal Vaccine: 50+ Ye ars (1 of 1 - PCV) 2018 Zoster Vaccines (1 of 2) 2018 COVID-19 Vaccine ( - 2023-2 5 season) 2024 Influenza Vaccine (#1) 2024 Cholesterol Screening (Lipid Panel) 11/10/2024 Colorectal Cancer Screening: Colonoscopy 11/10/2024 Depression Screening 11/10/2024 HIV Screening 11/10/2024 Hepatitis C Screening 11/10/2024 Social Influencers of Health Screening 11/10/2024 HIB Vaccines Aged Out No longer eligi ble based on patient's age to complete this topic HPV Vaccines Aged Out No longer eligi ble based on patient's age to complete this topic Hepatitis A Vaccines Aged Out No long er eligible based on patient's age to complete this topic IPV Vaccines Aged Out No longer eligi ble based on patient's age to complete this topic MMR Vaccines Aged Out No longer eligi ble based on patient's age to complete this topic Meningococcal ACWY Vaccine Aged Out N o longer eligible based on patient's age to complete this topic Meningococcal B Vacine Aged Out No lo nger eligible based on patient's age to complete this topic Pneumococcal Vaccine: Pediat rics (0 to 5 Years) and At-Risk Patients (6 to 64 Years) Aged Out No longer eligible b ased on patient's age to complete this topic RSV Immunization Patients Un jeff 20 months Aged Out No longer eligible b ased on patient's age to complete this topic Varicella Vaccines Aged Out No longer eligible based on patient's age to complete this topic Insurance MEDICAID - [place] Care Teams Paramedic Relationship Specialty Start Date End Date Shari Roger MD [address] [place] [address] PCP - General Internal Medicine 11/09/24
--- OUTSIDE RECORDS SUMMARY | 2024-11-13 08:29 | XMS_ITS | Clinical Summary ---
Author Organization [employer] Address [address] [facility] [address] [place] [address] Care Team Providers Care Medicaid Nurse Name Role Phone Laron Kira MAIER Primary Care Provider [phone] Allergies No known active allergies Medications cetirizine (ZyrTEC) 10 MG tablet take 1 tablet by oral route every day as needed 90 tablet 023 Active EPINEPHrine (Epipen) 0.3 MG/0.3ML injection syringeIndicati ons:Lip swelling Inject 0.3 mL (0.3 mg) as directed 1 (one) time if needed for anaphylaxis. Inject into upper leg. Call 911 after use. 1 each 024 Active diphenhydrAMINE (BENADryl) 25 MG tabletIndicatio ns:Lip swelling Take 1 tablet (25 mg) by mouth every 8 (eight) hours if needed for itching. 30 tablet 024 Active FREESTYLE LITE test stripIndication s:Type 2 diabetes mellitus without complication, without long-term current use of insulin ([facility]) TEST BLOOD SUGAR TWICE DAILY 50 strip 11 024 Active Diclofenac Sodium 1 % gel APPLY 1 GRAM TO AFFECTED AREA(S) THREE TIMES DAILY IN THE MORNING, AT NOON, AND AT BEDTIME NEEDED FOR PAIN 100 g 1 024 Active omega-3 acid ethyl esters (Lovaza) 1 g capsuleIndicati ons:Hypertrigly ceridemia TAKE 1 CAPSULE BY MOUTH EVERY MORNING 90 capsule 1 024 Active cyanocobalamin (Vitamin B-12) 1000 MCG tablet TAKE 1 TABLET BY MOUTH EVERY MORNING 90 tablet 1 10/02/2 024 Active TRUEplus Lancets 33G misc Apply 1 Units topically 2 times daily. TEST BLOOD SUGAR TWICE DAILY 100 each 11 Active ibuprofen 200 MG tabletIndicatio ns:Plantar fasciitis of left foot Take 2 tablets (400 mg) by mouth every 8 (eight) hours if needed for mild pain or moderate pain. 30 tablet Active metFORMIN (Glucophage) 1000 MG tabletIndicatio ns:Type 2 diabetes mellitus without complication, without long-term current use of insulin (CMS/[facility]) TAKE 1 TABLET BY MOUTH TWICE DAILY IN THE MORNING AND IN THE EVENING WITH FOOD 180 tablet 025 Active Aspirin Low Dose 81 MG EC tabletIndicatio ns:Health care maintenance TAKE 1 TABLET BY MOUTH EVERY MORNING 90 tablet 025 Active lisinopril 40 MG tabletIndicatio ns:Essential hypertension TAKE 1 TABLET BY MOUTH EVERY MORNING 90 tablet 025 Active amLODIPine (Norvasc) 10 MG tabletIndicatio ns:Essential hypertension TAKE 1 TABLET BY MOUTH EVERY MORNING 90 tablet 025 Active D3 Super Strength 50 MCG (1999 UT) capsule TAKE 1 CAPSULE BY MOUTH EVERY MORNING 90 capsule 025 Active tamsulosin (Flomax) 0.4 MG 24 hr capsule TAKE 1 CAPSULE BY MOUTH EVERY EVENING 90 capsule 025 Active oxybutynin XL (Ditropan-XL) 10 MG 24 hr tabletIndicatio ns:Overactive bladder TAKE 1 TABLET BY MOUTH AT BEDTIME 90 tablet 025 Active hydroCHLOROthia zide (HYDRODiuril) 25 MG tablet TAKE 1 TABLET BY MOUTH EVERY MORNING 90 tablet 025 Active atorvastatin (Lipitor) 40 MG tabletIndicatio ns:Type 2 diabetes mellitus without complication, without long-term current use of insulin (CMS/[facility]) TAKE 1 TABLET BY MOUTH EVERY MORNING 90 tablet 025 Active Dulaglutide (Trulicity) 1.5 MG/0.5ML solution auto-injectorIn dications:Type 2 diabetes mellitus without complication, without long-term current use of insulin (CMS/[facility]) Inject 1.5 mg under the skin 1 (one) time per week. INJECT ONE PEN (=1.5MG) SUBCUTANEOUSLY ONCE A WEEK DIRECTED 2 mL 2 025 Active tamsulosin (Flomax) 0.4 MG 24 hr capsule Take 1 capsule (0.4 mg) by mouth in the evening. 90 capsule 024 2024 Discontinued atorvastatin (Lipitor) 40 MG tabletIndicatio ns:Type 2 diabetes mellitus without complication, without long-term current use of insulin (CMS/HCC) TAKE 1 TABLET BY MOUTH EVERY MORNING 90 tablet 024 2024 Discontinued hydroCHLOROthia zide (HYDRODiuril) 25 MG tablet Take 1 tablet (25 mg) by mouth in the morning. 90 tablet 024 2024 Discontinued cholecalciferol (D3 Super Strength) 50 MCG (2000 UT) capsule Take 1 capsule (50 mcg) by mouth in the morning. 90 capsule 024 2024 Discontinued oxybutynin XL (Ditropan-XL) 10 MG 24 hr tabletIndicatio ns:Overactive bladder Take 1 tablet (10 mg) by mouth Once per day. Do not crush, chew, or split.TAKE 1 TABLET BY MOUTH AT BEDTIME DO NOT BREAK, CRUSH, DISSOLVE OR CHEW 90 tablet 024 2024 Discontinued Dulaglutide (Trulicity) 1.5 MG/0.5ML solution auto-injectorIn dications:Type 2 diabetes mellitus without complication, without long-term current use of insulin (CMS/[facility]) Inject 0.5 mL (1.5 mg) under the skin 1 (one) time per week. 2 mL 1 024 2024 Discontinued(R eorder (will not trigger notification to Pharmacy)) Active Problems Problem Noted Date Diagnosed Date Chest pain 05/19/2024 Assessment & Plan (05/19/2024 4:31 PM EDT): -low supicion for cardiac origin. Could be musculoskeletal or silent GERD -normal 12 lead EKG today -advised continued monitoring with specific attn to associated symptom -RTC if worsening. Will consider trying H2 nuria if persistent Lip swelling 11/17/2023 Assessment & Plan (11/17/2023 11:20 PM EST): Unilateral possible from bitting over area of recent sutures during night with not know, allergy, pt does take Ayaz Inh chronically but allergy to this is also a possibility There are no concerning symptoms on exam 05/2023 Chem wnl,CBC 08/2022 wnl -continue using ice in area -benadryl prn -epi pen px in case of emergency and explained how to use -predisone 20 mg x 5 days -primer supervisor referred today specially in setting of similar episode years ago -alarm signs symptoms explained to pt -SANJANA to be performed Internal hemorrhoid 11/12/2023 Overview (11/12/2023): Noted on colonoscopy 01/28/23 Diverticular disease of colon 06/24/2023 Hypertensive retinopathy of both eyes 04/14/2023 Overview (04/14/2023): Ophthalmology 12/25/22 Pinguecula of both eyes 04/14/2023 Overview (04/14/2023): Ophthalmology 12/25/22 Bilateral presbyopia 04/14/2023 Overview (04/14/2023): Ophthalmology 12/25/22 Dermatochalasis of both upper eyelids 04/14/2023 Overview (04/14/2023): Ophthalmology 12/25/22 Cortical age-related cataract of both eyes 04/14 Overview (04/14/2023): Ophthalmology 12/25/22 Monitor Health care maintenance 09/27/2022 Overview (07/02/2023): Routine Health Maintenance: Immunizations: Due PCV 20. Received today. Declines flu vaccine today. HIV: Nonreactive 09/27/22 Hep C: Nonreactive 09/27/22 Hepatitis B: Reactive 06/28/23. WNL Colonoscopy: FIT negative 2019, repeat annually. Cologuard positive 10/23/22. Referred for colonoscopy Performed January 2023. Will task MA to locate results PSA: will discuss at next visit IZ: Up to date Lung Cancer: Never smoker PSA: 06/28/23 WNL Lung cancer: Never smoker Eye: 12/25/22 Dental: Discuss next visit Assessment & Plan (11/13/2023 2:52 PM EST): -up to date on colorectal screening: due January 2026 -eye exam upcoming, has appointment -declined COVID vaccines; immunizations otherwise up to date Assessment & Plan (09/27/2022 6:40 PM EST): Colon Cancer: FIT negative 2019, repeat annually PSA: will discuss at next visit IZ: Up to date Lung Cancer: Never smoker Type 2 diabetes mellitus without complication Assessment & Plan (05/19/2024 4:52 PM EDT): -A1c slightly above goal of <7%. POCT A1c 6.9% today -continue: metformin 1000 mg two times daily and Trulicity 0.75 mg weekly -microalbumin: 11 completed 10/2023. Plan to recheck next year -foot exam: completed today -dental: encouraged to set up an appointment -eye exam: encouraged to set up appointment for routine screening -daily foot exams encouraged -low carb, low sugar diet and daily physical activity advised -follow-up 3 months Assessment & Plan (11/13/2023 3:01 PM EST): -continue metformin and trulicity as prescribed -no diabetes associated complications reported -will complete foot exam at next visit -labs ordered. Will call with results -follow-up in 3 months unless labs suggest otherwise Assessment & Plan (06/24/2023 5:44 PM EDT): Educated pt to check BG at least once a day fasting Monitor for sx of hypoglycemia or polyuria, polydypsia, polyphagia Pt is asymptomatic A1c and glucose controlled today Will perform diabetic foot exam at next visit F/u 3 months with new PCP or sooner PRN Contact dermatitis 05/07/2014 Acquired trigger finger 07/29/2012 Assessment & Plan (11/13/2023 2:59 PM EST): -not bothersome at this time -patient reports having injections in past as hand could not open -will refer to hand surgeon if it becomes bothersome Hypertrophy of bone 07/29/2012 Essential hypertension 11/30/2011 Overview (06/24/2023): Stable Taking meds as prescribed: Amlodipine 10 mg; lisinopril 40 mg; hydrochlorothiazide 25 mg Assessment & Plan (05/19/2024 4:19 PM EDT): -Well controlled on medications -continue amlodipine 10 mg, hydrochlorothiazide 25, and lisinopril 20 mg as prescribed -follow-up 3 months Assessment & Plan (11/17/2023 11:20 PM EST): Not took BP med yet --advised to take meds consistently at same time . BP was controlled at recent PCP apt in 11/13/2022 -To f up w PCP in 3 mo as rec ar recent apt Assessment & Plan (11/13/2023 2:55 PM EST): -stable at this time on amlodipine 10 mg, lisinopril 40 mg -continue current regimen -labs ordered to evaluate urine protein -follow-up in 3 months Assessment & Plan (06/24/2023 5:48 PM EDT): BP slightly elevated today 146/83 Took medication today Continue medication regimen F/u 3 months with new PCP or sooner PRN Encounters Date Type Department Care Team Description 10/27/2024 Refill [facility] [address] [place] [phone] Kira Larry NP Type 2 diabetes mellitus without complication, without long-term current use of insulin ([facility]) 10/26/2024 Telephone [facility] [address] [place], [place] [phone] Baldo Love MA Lab Orders 10/26/2024 Refill [facility] [address] [place] [address] Kira Larry NP Overactive bladder; Type 2 diabetes mellitus without complication, without long-term current use of insulin (CMS/HCC); Type 2 diabetes mellitus without complication, without long-term current use of insulin (CMS/HCC) 10/14/2024 9:30 AM EST Clinical Support [facility] [address] [place] [phone] Kaya Gong, INA Essential hypertension 10/12/[address] [phone] Carol Kimble, INA 10/12/[address] [address] Carol Kimble, INA 10/06/2024 Refill [facility] [address] [place], [place] [phone] Kira Larry NP Type 2 diabetes mellitus without complication, without long-term current use of insulin ([facility]); Health care maintenance; Essential hypertension 10/01/[address] [address] Kira Larry NP november09/04/2024 9:00 AM EST Office Visit [facility] [address] [place] [phone] Kira Larry NP Right calf pain (Primary Dx); Type 2 diabetes mellitus without complication, without long-term current use of insulin ([facility]); Essential hypertension 08/26/2024 Telephone [facility] [address] [place] [phone] Baldo Love MA chartprep 08/18/2024 9:00 AM EST Office Visit [facility] [address] [place] [phone] Shari Roger MD Plantar fasciitis of left foot (Primary Dx); Essential hypertension, benign; Right calf pain 08/13/2024 Refill [facility] [address] [place] [address] Kira Larry NP Type 2 diabetes mellitus without complication, without long-term current use of insulin (CMS/HCC) from Last 3 Months Immunizations Name Administration Dates Next Due Hep B, adult 09/16/2020,09/17/2017,08/13/2017 Influenza Injectable Quadriv alant Preservative Free IIV4 MDCK 07/20/2020 Influenza injectable quadriv alent IIV4 with preservative 09/25/2022,06/26/2018,08/13/2017,09/11 Influenza injectable quadriv alent preservative free 09/06/2021,09/16/2020,08/13/2019,07/08 Influenza, IIV3, injectable 09/14/2014, 1 Influenza, Split (incl. saniya fied surface antigen) 07/31/2013,07/29/2012 Moderna Covid-19 Vaccine 6+ Bivalent 10/04/2022 Pneumococcal Conjugate PCV 20 06/24/2023 Pneumococcal Polysaccharide PPSV23 05/26/2007 TD (adult), 2 Lf tetanus tox oid, preservative free, adsorbed 05/27/2008,09/30/1997 Tdap 03/05/2020,06/26/2018 Zoster, Recombinant 01/22/2022,11/22/2021 Social History Tobacco Use Types Packs/Day Years [...] not to disclose 2021 10:18 AM EDT Last Filed Vital Signs Vital Sign Reading Time Taken Comments Blood Pressure 122/70 10/14/2024 9:41 AM EST Pulse 73 10/14/2024 9:38 AM EST Temperature 36.9 ??C (98.5 ??F) 09/04/2024 9:22 AM ES T Respiratory Rate 18 10/14/2024 9:38 AM EST Oxygen Saturation 97% 10/14/2024 9:38 AM EST Room Air Inhaled Oxygen Concentration - - Weight 74.1 kg (163 lb 6.4 oz) 10/14/2024 9:38 A M EST Height 170.2 cm (5' 7 ) 09/04/2024 9:22 AM EST Body Mass Index 25.59 09/04/2024 9:22 AM EST Plan of Treatment Upcoming Encounters Date Type Department Care Team (Late st Contact Info) Description 12/02/2024 3:15 PM EST Office Visit [facility] [address] [place] [address] Kira Larry NP [address] [place] [address] Health Maintenance Due Date Last Done Comments CT Colonography 1968 Colonoscopy 1968 Colorectal Cancer Screening 1968 FIT DNA/Cologuard 1968 FIT 1968 FOBT 1968 Sigmoidoscopy 1968 Eye Exam 1978 COVID-19 Vaccine ( season) 2024 10/04/2022, 09/26/2021, 01/25/2021, Additional history exists SDOH Screening 11/06/2024 11/06/2023 Diabetes: Urine Protein Screening 11/15/2024 11/15/2023, 09/27/2022, 09/11/2021, Additional history exists Lipid Panel 11/15/2024 11/15/2023, 06/01, 09/27/2022, Additional history exists Diabetes: Hemoglobin A1C 12/03/2024 024, 2024, 11/15/2023, Additional history exists Depression Screening 2025 2024, 03/11/20 24 Diabetes: Foot Exam 2025 2024, 2024, 2024, Additional history exists Alcohol/Substance Use Screening 09/04/2025 09/04/2024 Tobacco Screening 10/14/2025 10/14/2024 DTaP/Tdap/Td Vaccines (4 - Td or Tdap) 10/21/2033 10/21/2023, 03/05/2020, 06/26/2018, Additional history exists RSV Patients and Patients Aged 60 years or older (1 - 1-dose 75+ series) 2043 Hepatitis B Vaccines Completed 09/16/2020, 09/17/2017, 08/13/2017 Zoster Vaccines Completed 01/22/2022, 11/22/2021 HIV Screening Completed 09/27/2022, 10/06/2019 Hepatitis C Screening Completed 09/27/2022, 020 Pneumococcal Vaccine: 50+ Years Completed 06/24/2023, 05/26/2007 Influenza Vaccine Completed 08/21/2024, , 09/25/2022, Additional history exists HIB Vaccines Aged Out No longer eligi [...] patient's age to complete this topic Meningococcal Vaccine Aged Out No malaika mc eligible based on patient's age to complete this topic RSV under 20 months Aged Out No longe r eligible based on patient's age to complete this topic Rotavirus Vaccines Aged Out No longer eligible based on patient's age to complete this topic Procedures Procedure Name Priority Date/Time Associated Diagnosis Comments BASIC METABOLIC PANEL Routine 09/04/2024 10:10 AM EST Type 2 diabetes mellitus without complication, without long-term current use of insulin (CMS/HCC) Essential hypertension POCT GLYCATED HEMOGLOBIN, TOTAL Routine 09/04/2024 9:28 AM EST Type 2 diabetes mellitus without complication, without long-term current use of insulin (CMS/HCC) POCT GLUCOSE Routine 09/04/2024 9:26 AM EST Type 2 diabetes mellitus without complication, without long-term current use of insulin (CMS/HCC) ALBUMIN, RANDOM URINE W/CREATININE Routine 11/15/2023 10:36 AM EST Type 2 diabetes mellitus without complication, without long-term current use of insulin (CMS/HCC) Essential hypertension LIPID PANEL, STANDARD Routine 11/15/2023 10:33 AM EST Type 2 diabetes mellitus without complication, without long-term current use of insulin (CMS/HCC) HEPATITIS C AB W/REFL TO HCV RNA, QN, PCR Routine 09/27/2022 8:50 AM EST Essential hypertension Type 2 diabetes mellitus without complication, without long-term current use of insulin ([facility]/HCC) Weight loss Generalized abdominal pain HIV 1/2 ANTIGEN/ANTIBODY, FOURTH GENERATION W/RFL Routine 09/27/2022 8:50 AM EST Essential hypertension Type 2 diabetes mellitus without complication, without long-term current use of insulin ([facility]/HCC) Weight loss Generalized abdominal pain from Last 3 Months or Most Recently Relevant to Health Maintenance Results * (ABNORMAL) Basic Metabolic Panel (09/04/2024 10:10 AM EST) Sodium 138 135 - 145 mmol/L [facility] Potassium 4.2 3.3 - 5.1 mmol/L [facility] Chloride 106 96 - 108 mmol/L [facility] Carbon Dioxide 25 22 - 29 mmol/L [facility] Anion Gap 11(L) 12 - 20 [facility] Urea Nitrogen (BUN) 18(H) 9 - 16 mg/dL [facility] Creatinine, Serum 0.82 0.5 - 1.4 mg/dL [facility] Estimated Glomerular Filt Rate >60 [facility] Comment:Chronic Kidney Disea se: Estimated GFR < 60 mL/min/1.85o6Walpgk Kidney Disease: Estimated GFR < 15 mL/min/1.73m2 Glucose 197(H) 60 - 115 mg/dL [facility] Calcium 10.2 8.4 - 10.2 mg/dL [facility] Blood Venous blood specimen / Unknown 09/04/2024 10:10 AM EST 09/04/2024 10:49 AM EST us Kira Larry PRODUCT EXAMINER LAB BLOOD ORDERABLES Final Resu lt Performing Organization Address City/State/[facility] Co de Phone Number [facility] [address] [place] [phone] * (ABNORMAL) POCT HGB A1C (09/04/2024 9:28 AM EST) Hemoglobin A1C 7.3(A) 4.0 - 6.0 % QC Media Lot # [id number] Lot# Expiration Date [id number] Blood 09/04/2024 9:28 AM EST us Kira Swartz PRODUCT EXAMINER POINT OF CARE TEST ENTER/EDIT O RDERABLES Final Result * (ABNORMAL) POCT Glucose (09/04/2024 9:26 AM EST) Glucose Blood, POC 244(A) 60 - 200 mg/dL QC Media Lot # [id number] Lot# Expiration Date 530[address] Blood Capillary blood specimen / Unknown 09/04/2024 9:26 AM EST us Kira Swartz PRODUCT EXAMINER POINT OF CARE TEST ENTER/EDIT O RDERABLES Final Result * Albumin, Random Urine W/Creatinine (11/15/2023 10:36 AM EST) Creatinine, Urine 143.38 mg/dL [facility] Microalbumin Urine 11.0 mg/L [facility] Microalbum Creatinine Ratio Ur 7.6 <30 ug/mg cr [facility] Comment:Albumin/Creatinine R atio Reference Ranges: Normal: < 30 ug/mg creatinine Microalbuminuria: 30 - 300 ug/mg creatinineClinical Albuminuria: > 300 ug/mg creatinine Urine (Urine, Random) 11/15/2023 10:36 AM EST 11/15/2023 11:10 AM EST Kira Larry PRODUCT EXAMINER LAB URINE ORDERABLES Final Resu lt [facility] [address] [place] [address] [phone] * (ABNORMAL) Lipid Panel, Standard (11/15/2023 10:33 AM EST) Triglycerides 93 <150 mg/dL [facility] Comment:Desirable Triglyceri de: less than 150 mg/dLBorderline High Triglyceride 150-199 mg/dLHigh Triglyceride: 200-499 mg/dLVery High Triglyceride: greater than or equal to 5OO mg/dL Cholesterol 119 <200 mg/dL [facility] Comment:Desirable Cholestero l: less than 200 mg/dLBorderline High Cholesterol: 200-239 mg/dLHigh Cholesterol: greater than 239 mg/dL LDL Cholesterol Calculated 70 <100 mg/dL [facility] Comment:Desirable LDL: less than 100 mg/dLNear Optimal/Above Optimal LDL: 110- 129 mg/dLBorderline High LDL: 130-159 mg/dLHigh LDL: 160-189 mg/dLVery High LDL: greater than or equal to 190 mg/dL HDL Cholesterol 31(L) >40 mg/dL [facility] Comment:Desirable HDL: great er than 40 mg/dL Note: This HDL assay may give artificially low results in patients with liver disease. Blood Venous blood specimen / Unknown 11/15/2023 10:33 AM EST 11/15/2023 11:08 AM EST Kira Larry PRODUCT EXAMINER LAB BLOOD ORDERABLES Final Resu lt [facility] [address] [place] [phone] * Hepatitis C Antibody with Reflex to HCV, RNA, Quantitative, Real-Time PCR (09/27/2022 8:50 AM EST) Hepatitis C Antibody NON-REACT IWONA NON-REACT IWONA [facility] Index <0.02 <1.00 [facility] Comment: HCV antibody was non-reactive. There is no laboratory evidence of HCV infection. In most cases, no further action is required. However, if recent HCV exposure is suspected, a test for HCV RNA (test code 47342) is suggested. For additional information please refer to http://education.Visys/faq/JHZ14d7 (This link is being provided for informational/ educational purposes only.) Blood Venous blood specimen / Unknown 09/27/2022 8:50 AM EST 09/27/2022 8:51 AM EST Narrative [facility] - 10/02/2022 9:07 PM EST FASTING:YES FASTING: YES Mely Olivas DEPARTMENT STORE GENERAL MANAGER LAB BLOOD ORDERABLES Final Result Performing Organization Address City/[facility]/ZIP Co de Phone Number [facility] [address] [facility] [place] [address] [facility] [address] [facility], ([address]) [place] [address] * HIV-1/2 Antigen and Antibodies, Fourth Generation, with Reflexes (09/27/2022 8:50 AM EST) HIV Antigen/Antibody, 4th Generation NON-REAC TIVE NON-REAC TIVE [facility] Comment: HIV-1 antigen and HIV-1/HIV-2 antibodies were not detected. There is no laboratory evidence of HIV infection. PLEASE NOTE: This information has been disclosed to you from records whose confidentiality may be protected by state law. ??If your state requires such protection, then the state law prohibits you from making any further disclosure of the information without the specific written consent of the person to whom it pertains, or as otherwise permitted by law. A general authorization for the release of medical or other information is NOT sufficient for this purpose. ?? For additional information please refer to http://education.Visys/faq/QQT951 (This link is being provided for informational/ educational purposes only.) The performance of this assay has not been clinically validated in patients less than 2 years old. Blood Venous blood specimen / Unknown 09/27/2022 8:50 AM EST 09/27/2022 8:51 AM EST Narrative [facility] - 10/02/2022 9:07 PM EST FASTING:YES FASTING: YES Mely Olivas [facility] LAB BLOOD ORDERABLES Final Result [facility] [address], [place] [address] [facility] [address] [facility], ([address]) [place] [address] from Last 3 Months or Most Recently Relevant to Health Maintenance Insurance [facility] C3 HSN PARTIAL Care Teams Medicaid Nurse Relationship Specialty Start Date End Date Kira Larry NP [address] [place] [phone] PCP - General Family Medicine 07/04/23
--- OUTSIDE RECORDS SUMMARY | 2024-11-13 08:29 | XMS_ITS | Encounter Summary ---
Author Organization [employer] Address [address] [place] [address] Care Team Providers Care Tow Bar Driver Name Role Phone Kira Larry NP Primary Care Provider [phone] Reason for Visit * Reason Comments Med Refill Encounter Details Date Type Department Care Team ([facility] Contact Info) Description 10/26/2024 Refill [facility] [address] [place] [address] Kira Larry NP [address] [facility] [place] [address] Overactive bladder; Type 2 diabetes mellitus without complication, without long-term current use of insulin ([facility]); Type 2 diabetes mellitus without complication, without long-term current use of insulin ([facility]) Social History Tobacco Use Types [...] Description 12/02/2024 3:15 PM EST Office Visit [facility] [address] [place] [address] Kira Larry NP [address] [place] [address] documented as of this encounter Visit Diagnoses Diagnosis Overactive bladder Hypertonicity of bladder Type 2 diabetes mellitus without complication, without long-term current use of insulin ([facility]) documented in this encounter Additional Health Concerns Assessment Noted Time PHQ-9 Depression Total Score: 4 03/11/20 24 4:00 PM EDT documented as of this encounter Care Teams Tow Bar Driver Relationship Specialty Start Date End Date Kira Larry NP [address] [place] [address] PCP - General Family Medicine 07/04/23 documented as of this encounter
[2024-11-13 11:21] LABS: Estimated Average Glucose 143 mg/dL; Hemoglobin A1C 166.4763 umol/L; Hemoglobin A1c % 6.6 % (<6.0)
[2024-11-13 11:29] LABS: Anion Gap 9 (12-20); Blood Urea Nitrogen 15 mg/dL (9-16); Calcium 9.2 mg/dL (8.4-10.2); Carbon Dioxide 27 mmol/L (22-29); Chloride 108 mmol/L (96-108); Cholesterol 89 mg/dL (<200); Estimated Glomerular Filt Rate > 60; Glucose Random 132 mg/dL (60-115); HDL Cholesterol 32 mg/dL (>40); LDL Cholesterol Calculated 41 mg/dL (<100); Potassium 4.4 mmol/L (3.3-5.1); Sodium 140 mmol/L (135-145); Triglycerides 82 mg/dL (<150)
[2024-11-13 11:56] LABS: Creatinine Urine 124.14 mg/dL; Microalbumin Urine < 5.0 mg/L
== END 2024-11-13 08:20 | disposition home or self-care (01) ==
LOC: HO.HHCL 08:19
PROVIDERS: Visit Provider Nurse Practitioner
DX: I10 Essential (primary) hypertension (principal); E11.9 Type 2 diabetes mellitus without complications
CPT/HCPCS: 36415; 80048; 80061; 82570; 83036